=== PATIENT | male | born 1955 | race Caucasian/White ===

== ENCOUNTER 2016-08-22 14:26 | Inpatient (IN) | payer OTHER ==
--- NOTE | ~2016-08-22 | CR149 ---
[facility] A Service of [facility] RADIOLOGY TEXT RESULTS PATIENT: SPENCER HAMPTON LOCATION: P1E P180-1 : 57 UNIT #: [id number] AGE: [address]: Harpreet Silverman MD SEX: M ORDER DR: [id number] [facility] [address] [facility]. [place], [place] [address] [id number] MR#: [id number] Acc #: [id number] NAME: SPENCER HAMPTON : 1955 SEX: M STUDY DATE/TIME: 08/23/2016 21:42 UNIT: P1E ROOM: [facility] STUDY DESCRIPTION: CR Hip Min 2 Views Jason Attending Physician: Harpreet Silverman M.D. Ordering Physician: Harpreet Silverman M.D. Primary Care Physician: Wily Scott M.D. MEDICAL IMAGING REPORT This report is preliminary unless electronic signature is present EXAM Bilateral hip views, 08/23/2016 HISTORY Pain. Fall 2 weeks, a lot of pain bilateral right greater than left, crack on right. FINDINGS AP internal rotation views of the bilateral hips are presented. Study is somewhat limited secondary to lack of orthogonal imaging. There are degenerative changes in partially visualized lower lumbar spine. Visualized bony pelvis intact. The proximal femurs intact in these limited single views bilaterally. Orthogonal imaging strongly recommended for full assessment. Mild degenerative changes in the bilateral hips. The periarticular soft tissues are unremarkable. There are surgical clips in the right lower quadrant of abdomen. Dictated by... Pete Fraga M.D. THIS IS AN ELECTRONICALLY VERIFIED REPORT Pete Fraga M.D. at 08/24/2016 3:05 PM ALICE/maty TD: 08/24/2016 03:02 JOB #: [id number] MEDICAL IMAGING REPORT Page 1 of 1 COPY
--- NOTE | ~2016-08-22 | PN ---
Unit #: [id number] #: [id number] Patient: SPENCER HAMPTON [id number] [facility] [address] [place] [address] [id number] I MR#: [id number] NAME: SPENCER HAMPTON ROOM: [facility] Age: 60 Sex: M Admission Date: 08/22/2016 : 1955 Attending Physician: Harpreet Silverman M.D. Admitting Physician: Harpreet Silverman M.D. Primary Care Physician: Rangel Hoff PROGRESS NOTES DATE 08/24/2016 DISCUSSION The patient seems to be a bit more awake and alert today as we have discontinued his scheduled Benadryl which the patient had been taking. He still, however, appears quite frail and offers little in the way of useful history apart from the fact that he was "using drugs at home." We continue current treatment. Dictated by... Harpreet Silverman M.D. CB/nancy TD: 08/25/2016 06:49 JOB #: [id number] [facility] PROGRESS NOTES Page 1 of 1 X Harpreet Silverman MD PROGRESS NOTE
--- NOTE | ~2016-08-22 | DS ---
Unit #: [id number] #: [id number] Patient: SPENCER HAMPTON [id number] [facility] [address] [place] [address] [id number] I MR#: [id number] NAME: SPENCER HAMPTON ROOM: [facility] Age: 60 Sex: M Admission Date: 08/22/2016 : 1955 Discharge Date: 08/27/2016 Attending Physician: aHrpreet Silverman M.D. Primary Care Physician: Wily Scott M.D. DISCHARGE SUMMARY REASON FOR ADMISSION The patient is a 60-year-old white male admitted after he had called [facility] complaining of auditory and visual hallucinations. HOSPITAL COURSE The patient was admitted to the [facility] unit and placed on suicide precautions. His auditory and visual hallucinations cleared rapidly after his hospitalization but he continued to appear quite sedated. At that time, he was still on Benadryl 25 mg 4 times daily and it was the feeling of this physician that this was probably contributing to his over-sedation. As a result, this medication was discontinued. The patient was also placed on routine detoxification protocols for both Klonopin and Wataga as he had been on these medications prior to admission but exhibited little in the way of signs or symptoms of withdrawal. His mood brightened considerably and by 08/27, the patient was in bright spirits. He requested discharge and it was ordered. DISCHARGE DIAGNOSES 1. Methamphetamine use disorder with intoxication and perceptual disturbance, resolved. 2. Delirium. 3. Chronic pain. 4. Chronic obstructive pulmonary disease. 5. Environmental allergies. FOLLOWUP CARE Followup to take place through the auspices of community mental health resources. DISCHARGE MEDICATIONS The patient is discharged on the following medications: 1. Fenofibrate 134 mg daily for constipation. 2. Proventil HFA 2 puffs q 4 hours p.r.n. shortness of air. 3. Bentyl 20 mg 4 times daily for abdominal cramping. 4. Protonix 40 mg once daily for GERD. 5. Lopressor 25 mg once daily for hypertension. 6. Lasix 20 mg once daily for hypertension. 7. Claritin 10 mg once daily for environmental allergies. 8. Vitamin B one tablet daily for vitamin supplementation. 9. Seroquel 50 mg at bedtime for mood stabilization. PROGNOSIS Unit #: [id number] #: [id number] Patient: SPENCER HAMPTON Considered fair. DIET AND ACTIVITY No dietary or physical restrictions were placed on the patient at time of discharge. Dictated by... Harpreet Silverman M.D. CB/shira TD: 08/27/2016 16:18 JOB #: [id number] DISCHARGE SUMMARY Page 1 of 1 X Harpreet Silverman MD X DISCHARGE SUMMARY
--- NOTE | ~2016-08-22 | PN ---
Unit #: [id number] #: [id number] Patient: SPENCER HAMPTON [id number] [facility] [address] [place] [address] [id number] I MR#: [id number] NAME: SPENCER HAMPTON ROOM: 80 Age: 60 Sex: M Admission Date: 08/22/2016 : 1955 Attending Physician: Harpreet Silverman M.D. Admitting Physician: Harpreet Silverman M.D. Primary Care Physician: Rangel Hoff PROGRESS NOTES DATE 08/26/2016 DISCUSSION The patient appears a bit brighter today and is more active within the therapeutic milieu. Should he sustain progress, discharge will likely take place tomorrow. Dictated by... Harpreet Silverman M.D. CB/bzg TD: 08/26/2016 15:01 JOB #: [id number] [facility] PROGRESS NOTES Page 1 of 1 X Harpreet Silverman MD X PROGRESS NOTE
--- NOTE | ~2016-08-22 | PN ---
Unit #: [id number] #: [id number] Patient: SPENCER HAMPTON [id number] [facility] [address] [place] [address] [id number] MR#: [id number] NAME: SPENCER HAMPTON ROOM: 80 Age: 60 Sex: M Admission Date: 08/22/2016 : 1955 Attending Physician: Harpreet Silverman M.D. Admitting Physician: Harpreet Silverman M.D. Primary Care Physician: Rangel Hoff PROGRESS NOTES DATE 08/25/2016 DISCUSSION The patient appears a bit less groggy with discontinuation of scheduled Benadryl. He remains, however, confined to his wheelchair. He offers no other complaints today and he has little in the way of signs or symptoms of withdrawal and appears less confused with discontinuation of Benadryl. Dictated by... Harpreet Silverman M.D. CB/monica TD: 08/25/2016 14:08 JOB #: [id number] [facility] PROGRESS NOTES Page 1 of 1 X Harpreet Silverman MD PROGRESS NOTE
--- NOTE | ~2016-08-22 | PA ---
Unit #: [id number] #: [id number] Patient: SPENCER HAMPTON [id number] [place] [address] [id number] MR#: [id number] NAME: SPENCER HAMPTON ROOM: [facility] Age: 60 Sex: M Admission Date: 08/22/2016 : 1955 Date of Assessment: 08/23/2016 Attending Physician: Harpreet Silverman M.D. Admitting Physician: Harpreet Silverman M.D. Primary Care Physician: Wily Scott M.D. PSYCHIATRIC ASSESSMENT IDENTIFYING INFORMATION The patient is a 60-year-old white male brought to this facility by [facility] after he had been reporting positive auditory and visual hallucinations. INFORMANT(S) Patient. RELIABILITY Poor. CHIEF COMPLAINT Was seeing things like monsters and stuff. HISTORY OF PRESENT ILLNESS The patient is a 60-year-old white male admitted after [facility] had been summoned to the building in which he lives by the piping supervisor there. The patient had reported that he had been acting in a bizarre fashion, responding to internal stimuli and reporting positive paranoid ideation. Patient admits that he has been "smoking a lot of ice." The patient reports no other substance abuse. The patient was reporting some depression and has multiple health issues including a history of chronic pain, COPD, hypertension and history of colon cancer. The patient when seen today is noted to be in frail physical condition and appears significantly older than his stated age. It is difficult to arouse the patient for interview and the history provided is somewhat less than optimal. He does not appear to be responding to internal stimuli at this point. PAST PSYCHIATRIC HISTORY The patient is unable to provide a reasonable psychiatric history. FAMILY HISTORY Noncontributory. SOCIAL HISTORY The patient lives alone. He admits to abuse of methamphetamine by means of smoking. He is a smoker. MEDICAL HISTORY Significant for a history of hypertension, GERD, chronic pain, COPD and environmental allergies. MEDICATION HISTORY Unit #: [id number] #: [id number] Patient: SPENCER HAMPTON 1. Claritin. 2. Furosemide. 3. Benadryl. 4. Lopressor. 5. Prilosec. 6. Bentyl. 7. Albuterol. 8. Clonazepam. 9. Navarre. 10. Fenofibrate. 11. Seroquel. ALLERGIES None reported. MENTAL STATUS EXAM At this time, reveals the patient to be a thin, disheveled white male appearing older than his stated age of 60 years. He is in moderate physical distress during interview and is oriented to person and place only. Speech is impoverished and rambling. Formal testing of memory and cognition are not possible secondary to the patient's inability to comply. He is less than optimally cooperative. He is currently denying suicidal or homicidal ideation. He does report positive auditory and visual hallucinations as well as some paranoid thinking. His judgement and insight appear to be significantly impaired and of thought is in evidence. ASSETS AND LIABILITIES Patient's assets to be assessed. Liabilities, lack of resources, ongoing substance use. ADMITTING DIAGNOSES 1. Methamphetamine use disorder with intoxication and perceptual disturbance. 2. Delirium. 3. Chronic pain. 4. Chronic obstructive pulmonary disease. 5. Environmental allergies. PSYCHIATRIC PLAN/TREATMENT GOALS The patient remains hospitalized for safety and stabilization. For obvious reasons, clonazepam and Navarre have been discontinued given the patient's current confusion and his admitted abuse of methamphetamine. We will continue other medications and the patient has been placed on routine detoxification protocol for both opioids and benzodiazepines. The patient will participate in appropriate gonzalez and milieu activities once able to do so. ESTIMATED LENGTH OF STAY Seven to ten days. Dictated by... Harpreet Silverman M.D. /formerly [facility] Unit #: [id number] #: [id number] Patient: SPENCER HAMPTON TD: 08/23/2016 15:23 JOB #: [id number] PSYCHIATRIC ASSESSMENT Page 1 of 1 X Harpreet Silverman MD X PSYCHIATRIC ASSESSMENT
--- NOTE | ~2016-08-22 | HP ---
Unit #: [id number] #: [id number] Patient: SPENCER HAMPTON [id number] [place] [address] [id number] I MR#: [id number] NAME: SPENCER HAMPTON ROOM: 80 Age: 60 Sex: M Admission Date: 08/22/2016 : 1955 Attending Physician: Harpreet Silverman M.D. Admitting Physician: Harpreet Silverman M.D. Primary Care Physician: Wily Scott M.D. HISTORY AND PHYSICAL HISTORY OF PRESENT ILLNESS The patient is a 60-year-old male admitted to [facility] on 08/22/2016 to detox from methamphetamine. PAST MEDICAL HISTORY 1. Hypertension 2. COPD 3. Chronic pain 4. History of colon cancer 5. GERD PAST SURGICAL HISTORY Spinal surgery SOCIAL HISTORY The patient is disabled. He lives alone. He smokes one pack of cigarettes daily and uses methamphetamines on a daily basis. FAMILY MEDICAL HISTORY Noncontributory. ALLERGIES No known drug allergies. CURRENT MEDICATIONS Include Seroquel, fenofibrate, Bennet, clonazepam, Ventolin, Bentyl, Prilosec, Lopressor, Benadryl, Lasix and Claritin. REVIEW OF SYSTEMS CONSTITUTIONAL: No fever or chills. HEENT: Denies any sore throat, ear pain or runny nose. CARDIOVASCULAR: Denies chest pain, irregular heart rhythm or palpitations. CHEST: Denies shortness of breath or cough. No hemoptysis. GASTROINTESTINAL: Denies nausea, vomiting, diarrhea or chronic constipation. ENDOCRINE: Denies history of increased thirst or urination. No recent significant weight loss or gain. GENITOURINARY: Denies dysuria, frequency, or hematuria. SKIN: Denies any rashes. HEMATOLOGIC: Denies history of increased bleeding or bruising. MUSCULOSKELETAL: Denies any hot, swollen joints. No generalized muscle pain. NEUROLOGIC: Denies problems with vision or speech. No frequent, severe Unit #: [id number] #: [id number] Patient: SPENCER HAMPTON headaches. No numbness, tingling or weakness in any extremities. Denies loss of bladder or bowel control. PHYSICAL EXAM GENERAL: Note that he is awake and alert. He does sometimes repeat himself and he does appear to be intoxicated. VITAL SIGNS: Temperature 98.0, heart rate 70, respiration 16, blood pressure 132/78. HEIGHT: 5'3". WEIGHT: 145 pounds. SKIN: Warm and dry without rash or lesion. HEENT: Normocephalic. TMs not viewed. Oral and nasal passages clear. Conjunctivae clear. PERRLA. EOMs intact. NECK: Supple without lymphadenopathy or thyromegaly. HEART: Regular rate and rhythm without murmur. LUNGS: Clear. ABDOMEN: Soft, nontender. : Not done. EXTREMITIES: No evidence of cyanosis, clubbing or edema. Moves all without focal deficit. NEUROLOGICAL: Grossly within normal limits. Cranial Nerves: II: Visual balderrama are intact. III, IV AND : Extraocular movements are intact. Pupils are equal, round and reactive to light. V: Facial sensation is grossly normal. VII: Facial movements and expression are normal. VIII: Auditory acuity grossly intact. IX, X: Uvula is midline. Phonation is normal. XI: Patient shrugs shoulders and turns head normally. XII: Tongue protrudes in the midline. Sensory and Motor Function: Sensory and motor sensation is grossly normal. Motor: moves all extremities well. IMPRESSION 1. Psychiatric admission. 2. Methamphetamine abuse. 3. Hypertension. 4. COPD. 5. Chronic pain. 6. History of colon cancer. 7. GERD. 8. Nicotine dependence. RECOMMENDATIONS Psychiatric per psychiatrist. MEDICAL: No contraindication to participate in facility activities. MEDICAL PROGNOSIS Fair. MEDICAL CONDITION Stable. Dictated by... Unit #: [id number] #: [id number] Patient: SPENCER HAMPTON A.P.R.N. EF/joanna TD: 08/23/2016 01:23 JOB #: [id number] HISTORY AND PHYSICAL Page 1 of 1 X SALLY WILHELM APRN X HISTORY AND PHYSICAL
[~2016-08-22 14:26] MED LIST: ALBUTEROL17 GM INH; ANTI-DIARRHEAL2 M1 PO; CIMETIDINE400 MG PO; CLARITIN10 M3 PO; CLARITIN10 MG PO; CLOTRIMAZOLE15 GM TP; FENOFIBRATE145 M1 PO; HYDROCHLOROTH12.5 M1 PO; HYDROCODON-ACE1 EAC9 PO; HYDROCODONE-APA1 T44 PO; KLONOPIN1 MG PO; LASIX20 MG PO; LISINOPRIL20 MG PO; METOPROLOL TAR25 MG PO; MIRTAZAPINE30 MG PO; PRILOSEC PO; PROTONIX PO; SEROQUEL50 MG PO; SYMBICORT 160/4.6 G1 INH; TRICOR PO
[2016-08-23 12:26] LABS: BASOPHIL% 0.3 % (0-2.5); EOSINOPHIL# 0.2 X10e3 (0-0.7); EOSINOPHIL% 2.2 % (0.0-7.0); HEMATOCRIT 34.8 % (38.0-50.0); HEMOGLOBIN 11.5 gm/dL (13.0-16.0); LYMPHOCYTE# 1.8 X10e3 (1.0-3.5); LYMPHOCYTE% 19.1 % (17.0-45.0); MEAN CELL VOLUME 86.8 FL (83-96); MEAN CORPUSCULAR HEMOGLOBIN 28.8 PG (28-34); MEAN CORPUSCULAR HGB CONC 33.2 g/dL (30-36); MEAN PLATELET VOLUME 8.9 FL (6.5-11.5); MONOCYTE# 0.6 X10e3 (0-1.0); MONOCYTE% 6.3 % (3.0-12.0); NEUTROPHIL# 6.8 X10e3 (1.5-7.1); NEUTROPHIL% 72.1 % (40-75); PLATELET COUNT 219 X10e3 (140-420); RED BLOOD COUNT 4.01 X10e (3.90-5.60); RED CELL DISTRIBUTION WIDTH 14.2 % (11.0-15.5); WHITE BLOOD COUNT 9.5 X10e3 (4.0-10.5)
[2016-08-23 12:28] LABS: DIFF IND NO
[2016-08-23 12:43] LABS: ALBUMIN SERUM 3.8 g/dL (3.5-5.0); BILIRUBIN,TOTAL 0.5 mg/dL (0.2-2.0); BUN/CREATININE RATIO 18.33; CALCIUM SERUM 9.4 mg/dL (8.4-10.2); CREATININE SERUM 1.2 mg/dL (0.6-1.4); GLOM FILT RATE Estimated 65.8 mL/min (>60); POTASSIUM 3.4 mmol/L (3.5-5.1); PROTEIN TOTAL SERUM 6.4 g/dL (6.0-8.3)
[2016-08-24 09:59] LABS: URINE APPEARANCE TURBID; URINE BILIRUBIN NEG (NEG); URINE BLOOD NEG (NEG); URINE COLOR DK YELLOW; URINE GLUCOSE NEG (NEG); URINE KETONE NEG (NEG); URINE LEUKOCYTE ESTERASE NEG (NEG); URINE NITRATE NEG (NEG); URINE PROTEIN NEG (NEG); URINE SPECIFIC GRAVITY 1.022 (1.003-1.035); URINE UROBILINOGEN 0.2 MG/DL (NEG)
[2016-08-24 10:36] LABS: AMPHETAMINE POS (NEG); BARBITURATES NEG (NEG); BENZODIAZEPINES POS (NEG); COCAINE POS (NEG); MARIJUANA NEG (NEG); OPIATES POS (NEG); TRICYCLIC ANTIDEPRESSANTS POS (NEG); U METHADONE NEG (NEG)
== END 2016-08-27 18:00 | disposition home or self-care (01) | DRG 897 ==
LOC: P1E 14:26
PROVIDERS: Specialist
PROC: HZ2ZZZZ Detoxification Services for Substance Abuse Treatment (ICD-10-PCS; principal; 2016-08-22)
DX: F15.122 Other stimulant abuse with intoxication with perceptual disturbance (principal); R45.851 Suicidal ideations; R41.0 Disorientation, unspecified; J44.9 Chronic obstructive pulmonary disease, unspecified
CPT/HCPCS: 73523; 80053; 80307; 81003; 85025; 86592

== ENCOUNTER 2016-09-12 21:00 | Inpatient (IN) | payer OTHER ==
--- NOTE | ~2016-09-12 | DS ---
Unit #: [id number] #: [id number] Patient: SPENCER HAMPTON [id number] [facility] [address] [place] [address] [id number] I MR#: [id number] NAME: SPENCER HAMPTON ROOM: [facility] Age: 60 Sex: M Admission Date: 09/13/2016 : 1955 Discharge Date: 09/17/2016 Attending Physician: Harpreet Silverman M.D. Primary Care Physician: Wily Scott M.D. DISCHARGE SUMMARY REASON FOR ADMISSION The patient is a 60-year-old white male, after he had called [facility] complaining of auditory and visual hallucinations. HOSPITAL COURSE The patient was admitted to the [facility] unit and placed on suicide precautions. He was restarted on Proventil, fenofibrate, Protonix, Lopressor, Lasix, Claritin, and vitamin D, and Seroquel. His stay in the hospital was characterized by poor participation within the therapeutic milieu and a little participation in post discharge planning by 09/17/2016. The patient's psychotic thinking had cleared and he exhibited no signs or symptoms of withdrawal. He requested discharge on that date and at that point was agreeable with plan for followup through the auspices of [facility] mental health resources and the chemical dependency intensive outpatient program provided by this facility. As per his request, discharge was ordered. FINAL DIAGNOSES Methamphetamine use disorder with intoxication and delusions. Dyslipidemia, gastroesophageal reflux disease, chronic obstructive pulmonary disease. DISPOSITION ON DISCHARGE The patient is discharged on the following medications: Claritin 10 mg once daily for environmental allergies, Protonix 40 mg daily for GERD, Lopressor 25 mg once daily for hypertension, Pepcid 20 mg b.i.d. for gastritis, Proventil HFA 2 puffs q.4 hours for COPD, Lasix 20 mg once daily for hypertension, Seroquel 50 mg at bedtime for mood stabilization and psychosis, Fenofibrate 134 mg daily for dyslipidemia, and Vistaril 50 mg q.6 hours p.r.n. anxiety. DISCHARGE INSTRUCTIONS No dietary or physical restrictions were placed upon the patient at the time of discharge. FOLLOWUP Followup will take place through the auspices of [facility] mental health resources. PROGNOSIS The patient's prognosis is considered fair. Unit #: [id number] #: [id number] Patient: SPENCER HAMPTON Dictated by... Harpreet Silverman M.D. CB/linda TD: 09/17/2016 13:41 JOB #: [id number] DISCHARGE SUMMARY Page 1 of 1 X Harpreet Silverman MD X DISCHARGE SUMMARY
--- NOTE | ~2016-09-12 | HP ---
Unit #: [id number] #: [id number] Patient: ULISES HAMPTON [id number] [place] [address] [id number] MR#: [id number] NAME: ULISES HAMPTON ROOM: P201 Age: 60 Sex: M Admission Date: 09/13/2016 : 1955 Attending Physician: Harpreet Silverman M.D. Admitting Physician: Harpreet Silverman M.D. Primary Care Physician: Wily Scott M.D. HISTORY AND PHYSICAL HISTORY OF PRESENT ILLNESS Ulises is a 60 year old admitted to [address] [place] [address] because of his continued drug use. He was just discharged from this facility after treatment for the same. PAST MEDICAL HISTORY 1. History of peptic ulcer disease 2. COPD 3. History of migraines 4. High blood pressure 5. Scoliosis 6. Degenerative disc disease 7. History of colon cancer 8. Hyperlipidemia PAST SURGICAL HISTORY 1. Low back 2. Colon resection ALLERGIES No known drug allergies. SOCIAL HISTORY Smokes one pack per day. Denies alcohol. Admits to a history of illicit drug use. FAMILY HISTORY Medically noncontributory. REVIEW OF SYSTEMS CONSTITUTIONAL: No fever or chills. HEENT: Denies any sore throat, ear pain or runny nose. CARDIOVASCULAR: Denies chest pain, irregular heart rhythm or palpitations. CHEST: Denies shortness of breath or cough. No hemoptysis. GASTROINTESTINAL: Denies nausea, vomiting, diarrhea or chronic constipation. ENDOCRINE: Denies history of increased thirst or urination. No recent significant weight loss or gain. GENITOURINARY: Denies dysuria, frequency, or hematuria. SKIN: Denies any rashes. HEMATOLOGIC: Denies history of increased bleeding or bruising. MUSCULOSKELETAL: Denies any hot, swollen joints. No generalized muscle Unit #: [id number] #: [id number] Patient: ULISES HAMPTON pain. NEUROLOGIC: Denies problems with vision or speech. No frequent, severe headaches. No numbness, tingling or weakness in any extremities. Denies loss of bladder or bowel control. CURRENT MEDICATIONS 1. Detox protocol 2. Protonix 40 mg q day 3. Seroquel 50 mg q.h.s. 4. Tricor 134 mg q day 5. Proventil inhaler p.r.n. 6. Lasix 20 mg q day 7. Lopressor 25 mg q day PHYSICAL EXAMINATION GENERAL: Alert, very thin, in no apparent distress. VITAL SIGNS: Blood pressure 112/70, heart rate 80, respirations 16, temperature 98.6. WEIGHT: 117 pounds. HEIGHT: 5'3". SKIN: Warm and dry without rash or lesion. HEENT: Normocephalic. TMs not viewed. Oral and nasal passages clear. Conjunctivae clear. Pupils equal, round and reactive to light and accommodation. Extraocular movements intact. NECK: Supple without lymphadenopathy or thyromegaly. HEART: Regular rate and rhythm without murmur. LUNGS: Clear. ABDOMEN: Soft, nontender. : Not done. EXTREMITIES: No evidence of cyanosis, clubbing or edema. Moves all extremities without focal deficit. NEUROLOGICAL: Grossly within normal limits. Cranial Nerves: II: Visual balderrama are intact. III, IV AND : Extraocular movements are intact. Pupils are equal, round and reactive to light. V: Facial sensation is grossly normal. VII: Facial movements and expression are normal. VIII: Auditory acuity grossly intact. IX, X: Uvula is midline. Phonation is normal. XI: Patient shrugs shoulders and turns head normally. XII: Tongue protrudes in the midline. Sensory and Motor Function: Sensory and motor sensation is grossly normal. Motor: moves all extremities well. Coordination: Gait is normal. Deep Tendon Reflexes: Intact. IMPRESSION 1. Psychiatric admission 2. The patient is very under weight RECOMMENDATIONS PSYCHIATRIC: Per psychiatrist. MEDICAL: 1. I see no contraindications to participating in facility's activities. 2. Add Ensure t.i.d. MEDICAL PROGNOSIS Good. MEDICAL CONDITION Unit #: [id number] #: [id number] Patient: ULISES HAMPTON. Dictated by... Yodit Manzano P.A.-C. for Rangel Lee/joanna TD: 09/14/2016 01:50 JOB #: [id number] HISTORY AND PHYSICAL Page 1 of 1 X Yodit Manzano HISTORY AND PHYSICAL
--- NOTE | ~2016-09-12 | PA ---
Unit #: [id number] #: [id number] Patient: SPENCER HAMPTON [id number] [place] [address] [id number] MR#: [id number] NAME: SPENCER HAMPTON [facility] Age: 60 Sex: M Admission Date: 09/13/2016 : 1955 Date of Assessment: 09/13/2016 Attending Physician: Harpreet Silverman M.D. Admitting Physician: Harpreet Silverman M.D. Primary Care Physician: Wily Scott M.D. PSYCHIATRIC ASSESSMENT IDENTIFYING INFORMATION The patient is a 60-year-old white male admitted to [address] [place] [address] with a history of recurrent abuse of methamphetamine and recurrence of psychotic thinking. CHIEF COMPLAINT None given. INFORMANT The patient, reliability is poor. HISTORY OF PRESENT ILLNESS The patient is a 60-year-old white male last discharged from this facility on 08/27/2016. He had at that time been admitted with methamphetamine and psychosis. The patient reports that he has "not been taking his medications correctly. He reports increasing depression and does admit to a recent relapse of methamphetamine abuse. He is at this point reporting positive suicidal ideation at the time of admission with plan to overdose on medications. For more complete history of present illness please refer to previous dictated notes. PAST PSYCHIATRIC HISTORY Reviewed no changes. PAST MEDICAL HISTORY Reviewed no changes. MEDICATIONS At the time of the patient's last discharge his medication regimen included fenofibrate, Proventil, Protonix, Lopressor, Lasix, Claritin, vitamin B, Seroquel. ALLERGIES None reported. FAMILY HISTORY Reviewed no changes. SOCIAL HISTORY Reviewed no changes. MENTAL STATUS EXAMINATION At this time reveals the patient to be a thin, disheveled white male Unit #: [id number] #: [id number] Patient: SPENCER HAMPTON appearing significantly older than his stated age of 60 years. He is in no apparently physical distress at the time of the examination. He is awake, alert, and oriented in all spheres. His mood is dysphoric. His affect blunted. Speech is impoverished but generally relevant and coherent. There are no gross deficits in memory or cognition noted. Intelligence is judged to be in the average range based on fund of knowledge. The patient is cooperative during the interview. He is currently endorsing positive suicidal ideation. He denies homicidal ideation. He denies current psychotic symptoms. His judgment and insight appear to be somewhat impaired. ASSETS AND LIABILITIES ASSETS: Supported family. LIABILITIES: Ongoing substance use. DIAGNOSTIC IMPRESSION Methamphetamine use disorder, chronic pain, chronic obstructive pulmonary disease, environmental allergies. TREATMENT PLAN The patient remains hospitalized for safety and stabilization. We will watch for any recurrence of psychotic symptoms. Hydrocodone, clonazepam and diphenhydramine will all be discontinued. The patient will participate in appropriate gonzalez and milieu activities with an estimate length of stay in the hospital of five to seven days. Dictated by... Harpreet Silverman M.D. KAYCEE/joanna TD: 09/13/2016 22:57 JOB #: [id number] PSYCHIATRIC ASSESSMENT Page 1 of 1 X Harpreet Silverman MD X PSYCHIATRIC ASSESSMENT
--- NOTE | ~2016-09-12 | PN ---
Unit #: [id number] #: [id number] Patient: SPENCER HAMPTON [id number] [facility] [address] [place] [address] [id number] MR#: [id number] NAME: SPENCER HAMPTON ROOM: [facility] Age: 60 Sex: M Admission Date: 09/13/2016 : 1955 Attending Physician: Harpreet Silverman M.D. Admitting Physician: Harpreet Silverman M.D. Primary Care Physician: Rangel Hoff PROGRESS NOTES DATE 09/14/2016 DISCUSSION The patient is active within the therapeutic milieu. He has been complaining of increased anxiety and requests reinitiation of Klonopin. It was explained to the patient that reinitiation of such medication given his substance abuse history is not foreseeable. We will add Vistaril 50 mg q. 6 hours p.r.n. anxiety. Dictated by... Harpreet Silverman M.D. CB/bzg TD: 09/14/2016 13:57 JOB #: [id number] [facility] PROGRESS NOTES Page 1 of 1 X Harpreet Silverman MD PROGRESS NOTE
--- NOTE | ~2016-09-12 | PN ---
Unit #: [id number] #: [id number] Patient: SPENCER HAMPTON [id number] [facility] [address] [place] [address] [id number] MR#: [id number] NAME: SPENCER HAMPTON ROOM: [facility] Age: 60 Sex: M Admission Date: 09/13/2016 : 1955 Attending Physician: Harpreet Silverman M.D. Admitting Physician: Harpreet Silverman M.D. Primary Care Physician: Rangel Hoff PROGRESS NOTES DATE 09/15/2016 DISCUSSION The patient remains wheelchair bound and offers little in the way of investment and maintenance of sobriety following discharge stating that he simply tends to return home following his discharge from the hospital. We continue current treatment and expect a.m. discharge within the next day or so. Dictated by... Harpreet Silverman M.D. CB/bzg TD: 09/15/2016 15:09 JOB #: [id number] [facility] PROGRESS NOTES Page 1 of 1 X Harpreet Silverman MD X PROGRESS NOTE
[2016-09-13 09:51] LABS: BASOPHIL% 0.4 % (0-2.5); EOSINOPHIL# 0.2 X10e3 (0-0.7); HEMATOCRIT 34.9 % (38.0-50.0); HEMOGLOBIN 11.5 gm/dL (13.0-16.0); LYMPHOCYTE# 2.3 X10e3 (1.0-3.5); LYMPHOCYTE% 29.6 % (17.0-45.0); MEAN CELL VOLUME 87.1 FL (83-96); MEAN CORPUSCULAR HEMOGLOBIN 28.6 PG (28-34); MEAN CORPUSCULAR HGB CONC 32.9 g/dL (30-36); MEAN PLATELET VOLUME 8.8 FL (6.5-11.5); MONOCYTE# 0.6 X10e3 (0-1.0); MONOCYTE% 7.6 % (3.0-12.0); NEUTROPHIL# 4.6 X10e3 (1.5-7.1); NEUTROPHIL% 60.4 % (40-75); PLATELET COUNT 310 X10e3 (140-420); RED CELL DISTRIBUTION WIDTH 13.8 % (11.0-15.5); WHITE BLOOD COUNT 7.6 X10e3 (4.0-10.5)
[2016-09-13 09:53] LABS: DIFF IND NO
[2016-09-13 10:19] LABS: ALBUMIN SERUM 3.8 g/dL (3.5-5.0); BILIRUBIN,TOTAL 0.3 mg/dL (0.2-2.0); CALCIUM SERUM 9.5 mg/dL (8.4-10.2); CREATININE SERUM 1.1 mg/dL (0.6-1.4); GLOM FILT RATE Estimated 73.1 mL/min (>60); POTASSIUM 4.6 mmol/L (3.5-5.1); PROTEIN TOTAL SERUM 6.9 g/dL (6.0-8.3)
[2016-09-13 12:46] LABS: URINE APPEARANCE CLEAR; URINE BILIRUBIN NEG (NEG); URINE BLOOD NEG (NEG); URINE COLOR YELLOW; URINE GLUCOSE 100 MG/DL (NEG); URINE KETONE NEG (NEG); URINE LEUKOCYTE ESTERASE NEG (NEG); URINE NITRATE NEG (NEG); URINE PH 6.5 (5-8); URINE PROTEIN NEG (NEG); URINE SPECIFIC GRAVITY 1.006 (1.003-1.035); URINE UROBILINOGEN 0.2 MG/DL (NEG)
[2016-09-13 13:00] LABS: AMPHETAMINE POS (NEG); BARBITURATES NEG (NEG); BENZODIAZEPINES NEG (NEG); COCAINE NEG (NEG); MARIJUANA NEG (NEG); OPIATES NEG (NEG); TRICYCLIC ANTIDEPRESSANTS NEG (NEG); U METHADONE NEG (NEG)
== END 2016-09-17 14:28 | disposition home or self-care (01) | DRG 897 ==
LOC: P2S 09-13 01:11
PROVIDERS: Specialist
PROC: HZ2ZZZZ Detoxification Services for Substance Abuse Treatment (ICD-10-PCS; principal; 2016-09-13)
DX: F15.20 Other stimulant dependence, uncomplicated (principal); F15.250 Other stimulant dependence with stimulant-induced psychotic disorder with delusions; G89.29 Other chronic pain; J44.9 Chronic obstructive pulmonary disease, unspecified; M41.9 Scoliosis, unspecified; Z85.038 Personal history of other malignant neoplasm of large intestine; E78.5 Hyperlipidemia, unspecified; F17.210 Nicotine dependence, cigarettes, uncomplicated; F41.9 Anxiety disorder, unspecified; K21.9 Gastro-esophageal reflux disease without esophagitis
CPT/HCPCS: 80053; 80307; 81003; 85025